=== PATIENT | female | born 1970 | race Caucasian/White ===

== ENCOUNTER 2020-06-12 09:33 | Outpatient (CLI) | payer BC, SELFPAY ==
--- NOTE | ~2020-06-12 | CT_ITS ---
EXAMINATION: CT diagnostic chest wo con DATE: 06/12/2020 10:02 INDICATION: Hemoptysis TECHNIQUE: Computed tomography (CT) of the chest was performed without intravenous contrast. The dose -length product was 723.86 mGy-cm. Automated exposure control and iterative reconstruction technique were employed. COMPARISON: No prior studies for comparison. FINDINGS: There is a conglomeration of nodules in the right lower lobe measuring up to 2 cm maximum d imension, images 84-94. There is a 1.3 cm right lower lobe nodule, image 93. There are borderline siz ed mediastinal lymph nodes, nonspecific. Largest measures 8 mm short axis dimension. No significant p leural or pericardial effusion. Small hiatal hernia with thickening of the distal esophagus. There ar e small accessory splenules. No pneumothorax. IMPRESSION: 1. Multiple right lower lobe nodules, largest discrete nodule measuring 1.3 cm. Cannot exclude metast atic disease or primary bronchogenic carcinoma. Consider further evaluation with pet/CT or tissue abigail pling. Reviewed, dictated and finalized at location A. RANCE ACCOUNT ASSISTANT IMPRESSION: 1. Multiple right lower lobe nodules, largest discrete nodule measuring 1.3 cm. Cannot exclude metastatic disease or primary bronchogenic carcinoma. Consider further evaluation with pet/CT or tissue sampling.
== END 2020-06-12 09:34 | disposition home or self-care (01) ==
PROVIDERS: Visit Provider Physician Assistant
DX: R04.2 Hemoptysis (principal); K44.9 Diaphragmatic hernia without obstruction or gangrene; R91.8 Other nonspecific abnormal finding of lung field
CPT/HCPCS: 71250

== ENCOUNTER 2020-07-12 13:39 | Outpatient (CLI) | payer BC, SELFPAY ==
--- NOTE | 2020-07-12 | ECHO_ITS ---
Patient Info Name: Heather Segura Age: 49 years : 1970 Gender: Female Ht: 66 in Wt: 278 lbs BSA: 2.49 m2 HR: 73 bpm BP: 186 / 115 mmHg Heart Rhythm: Sinus Rhythm Technical Quality: Good Exam Date: 07/12/2020 2:05 PM Exam Location: [facility] Patient Status: Outpatient Admit Date: 07/12/2020 Staff Ordering Physician: Mishel, Shani HIGUERA Vacuum Cleaner Operator: Zechariah Gonzalez, VIVIANE, RT Attending Provider: Mishel, Shani HIGUERA Referring Physician: Mishel CORNEJO; Exam Type: CA echo doppler color flow Study Info Indications R06.00 - Dyspnea, unspecified Complete two-dimensional, color flow and Doppler transthoracic echocardiogram is performed. Strain analysis performed. Summary 1. Complete two-dimensional, color flow and Doppler transthoracic echocardiogram is performed. 2. Unremarkable exam showing normal left and right ventricular systolic function and no valvular abnormalities. 3. No findings which would explain shortness of breath. Left Ventricle Left ventricular chamber dimension is normal. Left ventricular systolic function is normal, estimated at 60-65%. The left ventricular diastolic function is normal. Right Ventricle Right ventricular chamber dimension is normal. Left Atria Left atrial chamber dimension is normal. Right Atria Right atrial chamber dimension is normal. Aortic Valve The aortic valve is normal. Pulmonic Valve The pulmonic valve is not well visualized. Mitral Valve The mitral valve has normal leaflets. Tricuspid Valve The tricuspid valve leaflets are normal. Pericardium/Pleural The pericardium appears normal. Aorta The aortic root size at the sinus of Valsalva is normal. Left Ventricular Outflow Tract Name Value Normal LVOT 2D LVOT Diameter 2.0 cm LVOT Doppler LVOT Peak Gradient 5 mmHg LVOT Mean Gradient 3 mmHg LVOT VTI 23 cm LVOT VTI/AV VTI Ratio 0.7 LVOT Stroke Volume 70 ml LVOT CO 5.5 l/min LVOT CI 2.2 l/min/m2 Mitral Valve Name Value Normal MV Doppler MV Decel Daniels 532 cm/s2 MV PHT 53 ms MV Area (PHT) 4.2 cm2 4.0-5.0 MV Diastolic Function MV E Peak Velocity 96 cm/s MV A Peak Velocity 100 cm/s MV E/A 1.0 MV Decel Time 181 ms MV Annular TDI MV E/e' (Septal) 9.6 <=8.0
== END 2020-07-12 13:40 | disposition home or self-care (01) ==
PROVIDERS: PCP Physician Assistant; Visit Provider Physician Assistant
DX: R06.00 Dyspnea, unspecified (principal)
CPT/HCPCS: 93306

== ENCOUNTER 2020-08-17 17:38 | Outpatient (CLI) | payer BC, SELFPAY ==
--- NOTE | ~2020-08-17 | CT_ITS ---
EXAMINATION:CT diagnostic chest wo con DATE: 08/17/2020 18:08 INDICATION: Solitary pulmonary nodule. TECHNIQUE: Computed tomography (CT) of the chest was performed without intravenous contrast. Automate d exposure control and iterative reconstruction technique were employed. The dose-length product (DLP ) was 288.40 mGy-cm. COMPARISON: Chest CT 06/12/2020 FINDINGS: There is a 2 mm nodule in left upper lobe. There is a 3 mm nodule in right lower lobe. No p leural effusion. The heart size is normal. No pericardial effusion. There are no pathologically enlar ged lymph nodes. There is mild thoracic spondylosis. There is severe cervical spondylosis. IMPRESSION: 1. Interval resolution of right lower lobe pneumonia. 2. Two small pulmonary nodules, likely benign. Reviewed, dictated and finalized at location A.
== END 2020-08-17 17:39 | disposition home or self-care (01) ==
PROVIDERS: PCP Physician Assistant; Visit Provider Internal Medicine Pulmonary Disease
DX: R91.8 Other nonspecific abnormal finding of lung field (principal)
CPT/HCPCS: 71250

== ENCOUNTER 2021-05-19 10:52 | Emergency (ER) | payer BC, SELFPAY ==
[2021-05-19] VITALS (24 sets, daily range): BP systolic 142–179; BP diastolic 69–118; PULSE 60–80; RESP 15–24; TEMP 36.3–36.5; O2SAT 94–100
--- NOTE | ~2021-05-19 | XR_ITS ---
EXAMINATION: XR chest 2V EXAM DATE: 05/19/2021 11:20 INDICATION: Wheezing, new onset hypertension today. TECHNIQUE: Frontal and lateral projections of the chest obtained and reviewed. Comparison is made to prior examination from 02/24/2016. FINDINGS: The lungs are clear. There are no pleural effusions. The cardiomediastinal silhouette is within normal limits. There is no pneumothorax suspected. The bones and soft tissues are unremarkab le. IMPRESSION: No acute cardiopulmonary findings. Reviewed, dictated and finalized at location A. OR PRODUCT DEVELOPMENT SCIENTIST
--- NOTE | 2021-05-19 10:54 | ECG_ITS ---
Measurements Intervals [place] Rate: 72 P: 63 ME: 151 QRS: 24 QRSD: 84 T: 8 QT: 369 QTc: 406 Interpretive Statements SINUS RHYTHM BASELINE ARTIFACT- I, III, AVL, AVF BORDERLINE ECG Electronically Signed On 05-19-2021 11:25:27 GOVERNMENT EMPLOYEE by Amauri Rutherford D.O.
[2021-05-19 11:12] LABS: Basophils Percent Auto 0.2 % (0.2-1.2); Eosinophils Absolute Auto 0.2 K/mm3 (0-0.3); Hematocrit 39.2 % (37.0-47.0); Hemoglobin 12.2 g/dL (12.0-15.0); Immature Granulocyte Absolute 0.03 K/mm3 (0.00-0.031); Immature Granulocyte Percent A 0.3 % (0-0.5); Lymphocytes Absolute Auto 2.88 K/mm3 (0.9-3.2); Lymphocytes Percent Auto 31.3 % (18.3-44.2); Mean Corpuscular HGB Conc 31.1 g/dl (32-36); Mean Corpuscular Hemoglobin 25.9 pg (26-34); Mean Corpuscular Volume 83.2 fl (80-100); Monocytes Absolute Auto 0.7 K/mm3 (0.1-0.6); Monocytes Percent Auto 7.5 % (2.6-8.5); Neutrophils Absolute Auto 5.4 K/mm3 (1.3-6.7); Neutrophils Percent Auto 58.7 % (45.5-73.1); Platelet Count Result 377 k/mm3 (150-375); Red Blood Count 4.71 M/mm3 (4.2-5.4); Red Cell Distribution Width 14.1 % (11.5-14.5); White Blood Count 9.2 K/mm3 (4.5-10.0)
[2021-05-19 11:22] LABS: Prothrombin Time 12.9 Seconds (11.1-14.7)
[2021-05-19 11:23] LABS: Partial Thromboplastin Time 28.7 SECONDS (22.3-36.8)
[2021-05-19 11:25] LABS: Alanine Aminotransferase 15 U/L (4-35); Albumin Level 4.1 g/dL (3.5-5.1); Alkaline Phosphatase 94 U/L (38-126); Anion Gap 6 mmol/L (8-16); Aspartate Amino Transferase 22 U/L (14-36); Bilirubin,Total 0.3 mg/dL (0.2-1.3); Blood Urea Nitrogen 8 mg/dL (7-17); Calcium 8.8 mg/dL (8.4-10.2); Carbon Dioxide 30 mmol/L (22-30); Chloride 103 mmol/L (98-107); Estimated CRCL calculation 100 ml/min; Estimated Glomerular Filt Rate > 60; Glucose 105 mg/dL (65-110); Lipase 104 U/L (23-300); Potassium 3.6 mmol/L (3.4-5.0); Sodium 139 mmol/L (137-145)
[2021-05-19 11:36] LABS: Troponin I < 0.012 ng/mL (0.000-0.034)
[2021-05-19] MEDS: ASPIRIN 81 MG CHEWABLE TABLET 324 MG PO (12:23)
--- NOTE | 2021-05-19 12:34 | ED.GENADULT ---
HPI - General Adult General Chief complaint: Chest Pain Stated complaint: chest pain, high BP Time Seen by Provider: 05/19/21 12:28 Source: patient Mode of arrival: ambulatory Limitations: no limitations History of Present Illness HPI narrative: Patient is a 50-year-old female complaining sent here by her PCP due to elevated blood pressure. Patient states that she does not have a history of hypertension. Patient also states that she has some chest discomfort and coughing, productive, clear sputum started when she had COVID 2 weeks ago. Patient states her symptoms from COVID has resolved except for the lingering cough. Patient states that she has chest discomfort only when she coughs. Patient denies any shortness of breath, abdominal pain, nausea, vomiting, diaphoresis, fever or chills. Related Data Home Medications Medication Instructions Recorded Confirmed No Home Medications 05/19/21 05/19/21 Allergies Allergy/AdvReac Type Severity Reaction Status Date / Time No Known Allergies Allergy Verified 05/19/21 12:18 Review of Systems Review of Systems: All systems reviewed & are unremarkable except as noted in HPI and below Constitutional: Constitutional: Denies body ache(s), Denies chills, Denies excessive sweating, Denies fatigue, Denies fever(s), Denies headache(s), Denies lethargy, Denies malaise, Denies weakness and Denies weight loss Eyes: Eyes: Denies blurry vision, Denies change in vision and Denies loss of vision ENT: Denies dizziness, Denies ear discharge, Denies headache(s), Denies lip swelling, Denies epistaxis, Denies nasal congestion, Denies neck pain, Denies throat swelling and Denies tongue swelling Cardiovascular: Cardiovascular: Denies chest pain with activity, Denies diaphoresis, Denies rapid heart rate, Denies edema, Denies irregular heart rhythm, Denies lightheadedness, Denies palpitations, Denies dyspnea and Denies dyspnea on exertion Respiratory: Respiratory: Denies chest congestion, Denies hemoptysis, Denies dyspnea and Denies dyspnea on exertion Gastrointestinal: Gastrointestinal: Denies abdominal pain, Denies melena, Denies hematochezia, Denies diarrhea, Denies nausea, Denies vomiting and Denies hematemesis Musculoskeletal: Musculoskeletal: Denies abnormal gait, Denies deformity, Denies joint swelling, Denies limited range of motion, Denies neck pain and Denies numbness Neurologic: Denies Abnormal speech present, Denies abnormal gait, Denies confusion, Denies dizziness, Denies headache(s), Denies focal weakness, Denies loss of vision, Denies numbness, Denies Other visual disturbances, Denies Sensory deficit (Neuro) and Denies weakness Psychiatric: Psychiatric: Denies confusion, Denies depression, Denies auditory hallucinations, Denies homicidal ideation and Denies suicidal ideation Endocrine: Endocrine: Denies cold intolerance, Denies excessive sweating, Denies fatigue, Denies heat intolerance and Denies palpitations Hematologic/Lymphatic: Hematologic/Lymphatic: Denies easy bleeding and Denies easy bruising Allergic/Immunologic: Allergic/Immunologic: Denies lip swelling, Denies throat swelling and Denies tongue swelling PMFSH Past Medical History Medical History Asthma Depression Hernia Herpes simplex virus (HSV) infection Smoker Vitamin deficiency Surgical History Surgical History H/O hernia repair History of section History of tubal ligation Family History Family History Mother Alzheimer disease Father Malignant tumor of colon Malignant carcinoid tumor of lung Sibling Myocardial infarction Hx of heart artery stent Social History Social History Smoking packs per day: 1 Smoking cigarettes per day: 20.0 Years smoked: 24 Smoking pack-years: 24.0
[2021-05-19 14:04] LABS: Troponin I < 0.012 ng/mL (0.000-0.034)
== END 2021-05-19 16:18 | disposition home or self-care (01) ==
PROVIDERS: Emergency Provider Emergency Medicine
DX: R07.89 Other chest pain (principal); R03.0 Elevated blood-pressure reading, without diagnosis of hypertension; J45.909 Unspecified asthma, uncomplicated; F17.210 Nicotine dependence, cigarettes, uncomplicated; R94.31 Abnormal electrocardiogram [ECG] [EKG]; Z86.16 Personal history of COVID-19
CPT/HCPCS: 36415; 71046; 80053; 83690; 84484; 85025; 85610; 85730; 93005; 99284; A9270

== ENCOUNTER 2021-11-09 12:04 | Emergency (ER) | payer BC, SELFPAY ==
[2021-11-09 12:12] VITALS: BP 158/89; PULSE 74; RESP 16; TEMP 36.6; O2SAT 95
--- NOTE | 2021-11-09 13:20 | ED.LOWEXIN ---
HPI - Extremity Injury (Lower) General Chief Complaint: Extremity Injury, Lower Stated Complaint: left leg pain Time Seen by Provider: 11/09/21 13:22 Source: patient, RN notes reviewed and old records reviewed Mode of arrival: ambulatory Limitations: no limitations History of Present Illness HPI Narrative: 51 year old female who presents to express care with complaints of left calf area pain for the past 3 days. Patient also states that she has some pain to the posterior aspect of her left knee. 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 Patient reports some tingling to her feet, strong pedal pulses bilaterally. Patient verbalizes concern for possible clot to her left calf. Patient denies any shortness of breath is daily tobacco user. MD complaint: other (leg calf pain,posterior left knee pain) Onset (ago): day(s) (3) Severity scale (1-10): 8 Related Data Home Medications Medication Instructions Recorded Confirmed No Home Medications 05/19/21 05/19/21 Allergies Allergy/AdvReac Type Severity Reaction Status Date / Time No Known Allergies Allergy Verified 05/19/21 12:18 Review of Systems Review of Systems: CONSTITUTIONAL: Denies fever, chills, or sweats. EYES: Denies visual changes, redness, or discharge. ENT: Denies rhinorrhea, congestion, sore throat, or otalgia. CARDIOVASCULAR: Denies chest pain, palpitations, or edema. RESPIRATORY: Denies cough or dyspnea. GASTROINTESTINAL: Denies abdominal pain, nausea, vomiting, or diarrhea. GENITOURINARY: Denies dysuria or hematuria. SKIN: Denies rash or itching. MUSCULOSKELETAL: Denies back pain, joint pain, or myalgia.reports pain to left calf with swelling and pain to posterior aspect of left knee NEUROLOGIC: Denies headache, numbness, or weakness. PSYCHIATRIC: Denies anxiety or depression. All systems reviewed & are unremarkable except as noted in HPI and below PMFSH Past Medical History Medical History Asthma Depression Hernia Herpes simplex virus (HSV) infection Smoker Vitamin deficiency Surgical History Surgical History H/O hernia repair History of section History of tubal ligation Family History Family History Mother Alzheimer disease Father Malignant tumor of colon Malignant carcinoid tumor of lung Sibling Myocardial infarction Hx of heart artery stent Social History Social History Smoking packs per day: 1 Smoking cigarettes per day: 20.0 Years smoked: 24 Smoking pack-years: 24.00 Smoking status: Current every day smoker Tobacco type: cigarettes Alcohol intake: current Substance use: former Substance use type: 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 There is no relevant family history pertinent to the presenting complaint Exam Narrative: GENERAL: Well-appearing, well-nourished, obese and in no acute distress. HEAD: Normocephalic, atraumatic. EYES: PERRLA and EOMI. ENT: Nares clear, no rhinorrhea or epistaxis. Mucous membranes moist.TM's normal with good light reflex throat pink with no lesions or exudates or tonsil swelling NECK: Supple.no lymphadenopathy CHEST: Clear to auscultation. No respiratory distress.SAO2 95% on room air HEART: Regular rate and rhythm. No murmur heard. Normal peripheral pulses. ABDOMEN: Soft, nontender, nondistended, normal active bowel sounds. EXTREMITIES: Normal range of motion. edema calf of left leg with no redness or warmth,also reports some swelling behind left knee SKIN: Warm, dry, no rash. NEURO: No
== END 2021-11-09 13:48 | disposition short-term general hospital (02) ==
PROVIDERS: Emergency Provider Registered Nurse
DX: M79.662 Pain in left lower leg (principal); F17.210 Nicotine dependence, cigarettes, uncomplicated; J45.909 Unspecified asthma, uncomplicated
CPT/HCPCS: 99212; G0463

== ENCOUNTER 2021-11-09 14:04 | Emergency (ER) | payer BC, SELFPAY ==
--- NOTE | ~2021-11-09 | US_ITS ---
EXAMINATION: US venous doppler [facility] DATE: 11/09/2021 14:32 INDICATION: Left lower limb pain. TECHNIQUE: Grayscale images without and with compression and Doppler images of the left lower extremi ty veins were obtained. COMPARISON: None FINDINGS: The left common femoral vein, profunda femoral vein, femoral vein, popliteal vein, peroneal vein, pos terior tibial veins, gastrocnemius vein, and greater saphenous vein are patent. IMPRESSION: 1. Patent left lower extremity veins. No evidence of deep venous thrombosis. Reviewed, dictated and finalized at location K.
[2021-11-09 14:08] VITALS: BP 171/77; PULSE 73; RESP 15; TEMP 36.2; O2SAT 94
--- NOTE | 2021-11-09 14:19 | ED.EXTPRO ---
HPI - Extremity Problem General Chief complaint: Extremity Problem,Nontraumatic Stated complaint: left calf pain Time Seen by Provider: 11/09/21 14:06 History of Present Illness HPI Narrative: 51-year-old female presented from a local urgent care for further evaluation of left popliteal pain patient states that she is on her feet 8 to 10 hours a day at work, has developed a sudden onset of pain behind her left knee. Patient denies injury or trauma. No history of DVT or PEs. Not on control has not immobile for long periods of time. No history of cancer. Related Data Home Medications Medication Instructions Recorded Confirmed No Home Medications 05/19/21 05/19/21 Allergies Allergy/AdvReac Type Severity Reaction Status Date / Time No Known Allergies Allergy Verified 05/19/21 12:18 Review of Systems Review of Systems: CONSTITUTIONAL: Denies fever, chills, or sweats. EYES: Denies visual changes, redness, or discharge. ENT: Denies rhinorrhea, congestion, sore throat, or otalgia. CARDIOVASCULAR: Denies chest pain, palpitations, or edema. RESPIRATORY: Denies cough or dyspnea. GASTROINTESTINAL: Denies abdominal pain, nausea, vomiting, or diarrhea. GENITOURINARY: Denies dysuria or hematuria. SKIN: Denies rash or itching. MUSCULOSKELETAL: Reports left popliteal pain NEUROLOGIC: Denies headache, numbness, dizziness, or weakness. PSYCHIATRIC: Denies anxiety or depression. [facility] Past Medical History Medical History Asthma Depression Hernia Herpes simplex virus (HSV) infection Smoker Vitamin deficiency Surgical History Surgical History H/O hernia repair History of section History of tubal ligation Family History Family History Mother Alzheimer disease Father Malignant tumor of colon Malignant carcinoid tumor of lung Sibling Myocardial infarction Hx of heart artery stent Social History Social History Smoking packs per day: 1 Smoking cigarettes per day: 20.0 Years smoked: 24 Smoking pack-years: 24.00 Smoking status: Current every day smoker Tobacco type: cigarettes Alcohol intake: current Substance use: former Substance use type: crack/cocaine Last use: Patient has been clean for 5 years Gender identity (if verbalized by the patient): Female Exam Narrative: GENERAL: Well-appearing, well-nourished, no physical limitations, and in no acute distress. HEAD: Normocephalic, atraumatic. EYES: Conjunctivae normal, PERRLA and EOMI. CHEST: Clear to auscultation. No respiratory distress. No wheezes rales or rhonchi. No tenderness. HEART: Regular rate and rhythm. No murmur heard. Normal peripheral pulses. ABDOMEN: Soft, nontender, nondistended, normal active bowel sounds. : Normal external male/female exam. BACK: No CVA tenderness; No cervical/thoracic/lumbar tenderness, step-offs, bony abnormality; FROM EXTREMITIES: Tenderness to left popliteal, negative Homans' sign left lower extremity, no ecchymosis or soft tissue swelling noted to the left lower extremity SKIN: Warm, dry, no rash. No noted wounds NEURO: No focal deficits. Alert and oriented x3. MAEW. CN's II-XI intact bilaterally, normal gait PSYCH: Cooperative. Normal mood and affect. Course Vital Signs Vital signs: Vital Signs Temperature 36.2 C L 11/09/21 14:08 Pulse Rate 73 11/09/21 14:08 Respiratory Rate 15 11/09/21 14:08 Blood Pressure 171/77 H 11/09/21 14:08 Pulse Oximetry 94 11/09/21 14:08 Oxygen Delivery Room Air 11/09/21 14:08 Temperature 36.6 C 11/09/21 15:30 Pulse Rate 76 11/09/21 15:30 Respiratory Rate 16 11/09/21 15:30 Blood Pressure 150/80 H 11/09/21 15:30 Pulse Oximetry 98 11/09/21 15:30 Oxygen Delivery Room Air 11/09/21 14:08 D
[2021-11-09 15:30] VITALS: BP 150/80; PULSE 76; RESP 16; TEMP 36.6; O2SAT 98
== END 2021-11-09 15:31 | disposition home or self-care (01) ==
LOC: ANHED 15:22
PROVIDERS: Emergency Provider Nurse Practitioner Family; PCP Emergency Medicine
DX: M25.562 Pain in left knee (principal); F17.210 Nicotine dependence, cigarettes, uncomplicated; J45.909 Unspecified asthma, uncomplicated; F32.9 Major depressive disorder, single episode, unspecified
CPT/HCPCS: 93971; 96372; 99284; J1100

== ENCOUNTER → 2022-03-16 14:38 | Outpatient (CLI) | payer BC, SELFPAY ==
--- NOTE | ~2022-03-16 | XR_ITS ---
XR chest 2V DATE: 03/16/2022 14:55 INDICATION: Productive cough for 2 weeks. Smoker. TECHNIQUE: 2 views COMPARISON: 05/19/2021 PA and lateral chest FINDINGS: Heart size is normal. No hilar or mediastinal enlargement. No pulmonary infiltrate or consolidation, pleural effusion or pulmonary vascular congestion or pneumo thorax. Mild degenerative change of the thoracic spine. No suspicious osteolytic or osteoblastic lesions. IMPRESSION: No active cardiopulmonary disease Reviewed, dictated and finalized at location A. [employer]
== END ==
PROVIDERS: PCP Emergency Medicine; Visit Provider Emergency Medicine
DX: R05.9 Cough, unspecified (principal); Z72.0 Tobacco use
CPT/HCPCS: 71046